=== PATIENT | female | born 1995 | race Caucasian/White ===

== ENCOUNTER 2017-07-02 15:09 | Emergency (ER) | payer SELFPAY ==
--- NOTE | 2017-07-02 16:01 | ER Document Report ---
ED Medical Screen (RME) - General Chief Complaint: Vaginal Bleeding Stated Complaint: VAGINAL BLEEDING Time Seen by Provider: 07/02/17 15:57 Notes: Patient presents with vaginal bleeding and lower abdominal cramping. She states she is 13 weeks . She has not had an ultrasound with this . She states she did have some bleeding at 6 weeks and received RhoGam at that time. TRAVEL OUTSIDE OF THE [place] IN LAST 30 DAYS: No - Related Data Allergies/Adverse Reactions: ofloxacin [From Floxin] Allergy (Verified 09/26/14 18:38) acetaminophen [From Tylenol] Adverse Reaction (Intermediate, Verified 07/02/17 15:11) VOMITING Past Medical History - General Last Menstrual Period: 03/27/17 - Social History Chew tobacco use (# tins/day): No Frequency of alcohol use: None Drug Abuse: None Pulmonary Medical History: Reports: Hx Asthma Renal/ Medical History: Denies: Hx Peritoneal Dialysis Psychiatric Medical History: Reports: Hx Anxiety, Hx Attention Deficit Hyperactivity Disorder, Hx Depression Past Surgical History: Reports: Hx Tonsillectomy - Immunizations Immunizations up to date: Yes Physical Exam - Vital signs Vitals: Temp Pulse Resp BP Pulse Ox 98.9 F 85 20 124/71 97 07/02/17 15:20 07/02/17 15:20 07/02/17 15:20 07/02/17 15:20 07/02/17 15:20 Course - Vital Signs Vital signs: Temp Pulse Resp BP Pulse Ox 98.9 F 85 20 124/71 97 07/02/17 15:20 07/02/17 15:20 07/02/17 15:20 07/02/17 15:20 07/02/17 15:20
[2017-07-02 16:32] LABS: ABSOLUTE BASOPHILS # (AUTO) 0.1 10^3/uL (0.0-0.2); ABSOLUTE EOSINOPHILS # (AUTO) 0.3 10^3/uL (0.0-0.6); ABSOLUTE LYMPHOCYTES (AUTO) 3.4 10^3/uL (0.5-4.7); ABSOLUTE MONOCYTES (AUTO) 0.8 10^3/uL (0.1-1.4); ABSOLUTE NEUT (AUTO) 5.7 10^3/uL (1.7-8.2); BASOPHILS % (AUTO) 0.8 % (0-2); EOSINOPHILS % (AUTO) 2.9 % (0-6); HEMATOCRIT 42.7 % (36.0-47.0); HEMOGLOBIN 14.7 g/dL (12.0-15.5); LYMPHOCYTES % (AUTO) 33.3 % (13-45); MEAN CORPUSCULAR HEMOGLOBIN 31.5 pg (27.0-33.4); MEAN CORPUSCULAR HGB CONC 34.3 g/dL (32.0-36.0); MEAN CORPUSCULAR VOLUME 92 fl (80-97); MONOCYTES % (AUTO) 7.7 % (3-13); PLATELET COUNT 333 10^3/uL (150-450); RED BLOOD COUNT 4.65 10^6/uL (3.72-5.28); RED CELL DISTRIBUTION WIDTH 12.7 % (11.5-14.0); SEGMENTED NEUTROPHILS % (AUTO) 55.3 % (42-78); TOTAL CELLS COUNTED % (AUTO) 100 %; WHITE BLOOD COUNT 10.2 10^3/uL (4.0-10.5)
--- NOTE | 2017-07-02 16:43 | ER Document Report ---
ED General - General Chief Complaint: Vaginal Bleeding Stated Complaint: VAGINAL BLEEDING Time Seen by Provider: 07/02/17 15:57 Mode of Arrival: Ambulatory Information source: Patient Notes: 22 yr old female currently 13 weeks presents with complaints of bright red vag spotting that started today. pt had bleeding at 6 weeks received rho alisha, pt dneies any abd pain, denies any clots this time. TRAVEL OUTSIDE OF THE [place] IN LAST 30 DAYS: No - HPI Onset: Just prior to arrival - Related Data Allergies/Adverse Reactions: ofloxacin [From Floxin] Allergy (Verified 09/26/14 18:38) acetaminophen [From Tylenol] Adverse Reaction (Intermediate, Verified 07/02/17 15:11) VOMITING Past Medical History - General Last Menstrual Period: 03/27/17 - Social History Smoking Status: Current Every Day Smoker Chew tobacco use (# tins/day): No Frequency of alcohol use: None Drug Abuse: None Family History: Reviewed & Not Pertinent Patient has suicidal ideation: No Patient has homicidal ideation: No Pulmonary Medical History: Reports: Hx Asthma Renal/ Medical History: Denies: Hx Peritoneal Dialysis Psychiatric Medical History: Reports: Hx Anxiety, Hx Attention Deficit Hyperactivity Disorder, Hx Depression Past Surgical History: Reports: Hx Tonsillectomy - Immunizations Immunizations up to date: Yes Physical Exam - Vital signs Vitals: Temp Pulse Resp BP Pulse Ox 98.9 F 85 20 124/71 97 07/02/17 15:20 07/02/17 15:20 07/02/17 15:20 07/02/17 15:20 07/02/17 15:20 Course - Re-evaluation Re-evalutation: 07/02/17 18:40 Ultrasound is concerning for threatened miscarriage report was provided to the patient and mother, we had a long discussion about the miscarriage they will follow-up in 48 hours for repeat hCG After performing a Medical Screening Examination, I estimate there is LOW risk for ACUTE APPENDICITIS, BOWEL OBSTRUCTION, ACUTE CHOLECYSTITIS, PERFORATED DIVERTICULITIS, INCARCERATED HERNIA, PANCREATITIS, PELVIC INFLAMMATORY DISEASE, PERFORATED ULCER, ECTOPIC , or TUBO-OVARIAN ABSCESS, thus I consider the discharge disposition reasonable. Also, there is no evidence or peritonitis , sepsis, or toxicity. I have reevaluated this patient multiple times and no significant life threatening changes are noted. The patient and I have discussed the diagnosis and risks, and we agree with discharging home with close follow-up with the understanding that symptoms and presentations can change. We also discussed returning to the Emergency Department immediately if new or worsening symptoms occur. We have discussed the symptoms which are most concerning (e.g., bloody stool, fever, changing or worsening pain, vomiting) that necessitate immediate return. - Vital Signs Vital signs: Temp Pulse Resp BP Pulse Ox 98.9 F 85 20 124/71 97 07/02/17 15:20 07/02/17 15:20 07/02/17 15:20 07/02/17 15:20 07/02/17 15:20 - Laboratory Result Diagrams: 07/02/17 16:05 07/02/17 15:06 Laboratory results interpreted by me: 07/02/17 07/02/17 15:06 16:00 BUN 5 L Creatinine 0.50 L Calcium 10.4 H Beta HCG, Quant 1489.60 H Urine Blood LARGE H - Diagnostic Test Radiology reviewed: Image reviewed - Threatened miscarriage, Reports reviewed Discharge - Discharge Clinical Impression: Threatened miscarriage in early Condition: Stable Disposition: HOME, SELF-CARE Instructions: Repeat Blood Test ([facility]), Threatened Miscarriage ([facility]) Forms: Follow-Up Laboratory Testing
[2017-07-02 16:44] LABS: AMORPHOUS SEDIMENT,URINE 2+ /HPF; APPEARANCE,URINE TURBID; BILIRUBIN,URINE NEGATIVE (NEGATIVE); COLOR,URINE YELLOW; GLUCOSE, URINE NEGATIVE (NEGATIVE); KETONES,URINE NEGATIVE (NEGATIVE); LEUKOCYTE ESTERASE,URINE NEGATIVE (NEGATIVE); NITRITE,URINE NEGATIVE (NEGATIVE); PROTEIN,URINE NEGATIVE (NEGATIVE); URINE SPECIFIC GRAVITY 1.011; UROBILINOGEN,URINE NEGATIVE mg/dL (<2.0)
[2017-07-02 16:49] LABS: ALANINE AMINOTRANSFERASE 33 U/L (9-52); ALBUMIN 4.7 g/dL (3.5-5.0); ALKALINE PHOSPHATASE 65 U/L (38-126); ANION GAP 12 (5-19); ASPARTATE AMINO TRANSFERASE 22 U/L (14-36); BILIRUBIN,DIRECT 0.1 mg/dL (0.0-0.4); BILIRUBIN,TOTAL 0.5 mg/dL (0.2-1.3); BLOOD UREA NITROGEN 5 mg/dL (7-20); CALCIUM 10.4 mg/dL (8.4-10.2); CARBON DIOXIDE 26 mmol/L (22-30); CHLORIDE 104 mmol/L (98-107); GLUCOSE 77 mg/dL (75-110); POTASSIUM 4.1 mmol/L (3.6-5.0); SODIUM 141.9 mmol/L (137-145)
--- NOTE | 2017-07-02 18:19 | RADIOLOGY REPORT (SQ) ---
EXAM DESCRIPTION: U/S [id number] TRNABD 1GES W/ODOP COMPLETED DATE/TIME: 07/02/2017 6:07 pm REASON FOR STUDY: pain/preg/bleeding COMPARISON: None. TECHNIQUE: Transabdominal static and realtime grayscale images acquired of the pelvis. Additional se lected spectral and color Doppler images recorded. All images stored on PACs. bHC,489. LIMITATIONS: None. FINDINGS: UTERUS: No masses. No anomalies. GESTATIONAL SAC: Fairly large and slightly irregular gestational sac. Measurements correspond to a 9 week gestation. YOLK SAC: No. POLE: No. RIGHT ADNEXA: Normal ovary with normal vascular flow. No adnexal free fluid. No adnexal masses. LEFT ADNEXA: Normal ovary with normal vascular flow. No adnexal free fluid. No adnexal masses. FREE FLUID: None. OTHER: No other significant finding. IMPRESSION: GESTATIONAL SAC WITH MEASUREMENTS CORRESPONDING TO A 9 WEEK GESTATION. NO POLE AN D NO CLEAR-CUT YOLK SAC VISUALIZED. BHCG LEVEL APPROPRIATE FOR ENDOMETRIAL FINDINGS. FINDINGS SOMEWHAT CONCERNING FOR FAILED . RECOMMEND FOLLOW-UP ULTRASOUND AND BETA HCG LEVEL IN A FEW DAYS TO DETERMINE IF THERE IS ANY NORMAL DEVELOPMENT. Trimester of : First - 0 to 13 weeks. TECHNICAL DOCUMENTATION: JOB ID: [id number] [employer]- All Rights Reserved Reading location - IP/workstation name: [email or web address]
[2017-07-02 18:49] VITALS: BP 114/73
== END 2017-07-02 18:49 | disposition home or self-care (01) ==
LOC: ER 15:09
DX: O20.0 Threatened abortion (principal); O99.331 Smoking (tobacco) complicating pregnancy, first trimester; Z3A.13 13 weeks gestation of pregnancy; Z88.6 Allergy status to analgesic agent
CPT/HCPCS: 36415; 76801; 80053; 81001; 84702; 85025; 99284

== ENCOUNTER 2017-07-06 07:05 | Emergency (ER) | payer SELFPAY ==
--- NOTE | 2017-07-06 07:57 | ER Document Report ---
ED GI/ - General Chief Complaint: Vag Bleeding, +preg <12wks Stated Complaint: PELVIC PAIN Time Seen by Provider: 07/06/17 07:47 Mode of Arrival: Ambulatory Information source: Patient Notes: Seen in emergency room last Friday, ultrasound showed a threatened miscarriage. Patient received RhoGam at 6 weeks due to bleeding at that time. Patient passed white appearing sac in toilet in the emergency room today. TRAVEL OUTSIDE OF THE [place] IN LAST 30 DAYS: No - HPI Patient complains to provider of: Abdominal pain, Pelvic pain, Vaginal bleeding Onset: Other - Symptoms started Friday Timing/Duration: Persistent Quality of pain: Pressure, Sharp Severity at maximum: Severe Severity in ED: Severe Pain Level: 5 Context: Vaginal bleeding (Compared to normal period): Heavier OB ultrasound done: Yes Sexual history: Active Exacerbated by: Denies Relieved by: Denies Similar symptoms previously: Yes - Seen in ER Friday, states she was told she was about 9 weeks Recently seen / treated by doctor: Yes - Related Data Allergies/Adverse Reactions: ofloxacin [From Floxin] Allergy (Verified 09/26/14 18:38) acetaminophen [From Tylenol] Adverse Reaction (Intermediate, Verified 07/02/17 15:11) VOMITING Past Medical History - General Information source: Patient - Social History Smoking Status: Current Every Day Smoker Cigarette use (# per day): Yes Frequency of alcohol use: Occasional Drug Abuse: None Lives with: Family Family History: Reviewed & Not Pertinent Pulmonary Medical History: Reports: Hx Asthma Psychiatric Medical History: Reports: Hx Anxiety, Hx Attention Deficit Hyperactivity Disorder, Hx Depression Past Surgical History: Reports: Hx Adenoidectomy, Hx Herniorrhaphy, Hx Myringotomy, Hx Tonsillectomy - Immunizations Immunizations up to date: Yes Review of Systems - Review of Systems Constitutional: No symptoms reported EENT: No symptoms reported Cardiovascular: No symptoms reported Respiratory: No symptoms reported Gastrointestinal: No symptoms reported Genitourinary: No symptoms reported Female Genitourinary: , Vaginal bleeding Musculoskeletal: No symptoms reported, Joint pain Hematologic/Lymphatic: No symptoms reported Neurological/Psychological: No symptoms reported -: Yes All other systems reviewed and negative Physical Exam - Vital signs Vitals: Temp Pulse Resp BP Pulse Ox 98.6 F 95 18 118/70 98 07/06/17 07:08 07/06/17 07:08 07/06/17 07:08 07/06/17 07:08 07/06/17 07:08 - General General appearance: Alert, Anxious In distress: Mild - Respiratory Respiratory status: No respiratory distress Breath sounds: Normal - Cardiovascular Rhythm: Regular Heart sounds: Normal auscultation - Abdominal Inspection: Normal Bowel sounds: Normal Notes: Patient reassessed after morphine given and denies abdominal pain with palpation. Spoke with Dr. Moore about transvaginal ultrasound after the patient had been medicated. States that no was seen on abdominal ultrasound, and sac appeared to be partially hanging out of the cervix. Told her that patient had passed the sac, so no repeat transvaginal ultrasound at this time. Patient is to return for quant levels in 2 days. - Back Back: Normal - Extremities General upper extremity: Normal inspection General lower extremity: Normal inspection - Neurological Neuro grossly intact: Yes Cognition: Normal Orientation: AAOx4 - Psychological Associated symptoms: Anxious - Skin Skin Temperature: Warm Skin Moisture: Dry Skin Color: Normal Course - Re-evaluation Re-evalutation: 07/06/17 10:44 Patient denies pain after morphine was given. Abdomen nontender to palpation. Reports of abdominal ultrasound given to patient. She is to return in 2 days for repeat quant levels, earlier if vaginal bleeding or pain worsens - Vital Signs Vital signs: Temp Pulse Resp BP Pulse Ox 98.6 F 95 18 118/70 98 07/06/17 07:08 07/06/17 07:08 07/06/17 07:08 07/06/17 07:08 07/06/17 07:08 - Laboratory Result Diagrams: 07/06/17 08:00 07/06/17 08:00 Laboratory results interpreted by me: 07/06/17 07/06/17 08:00 08:00 WBC 15.2 H Absolute Neutrophils 11.7 H Beta HCG, Quant 596.42 H Discharge - Discharge Clinical Impression: Miscarriage Condition: Good Disposition: HOME, SELF-CARE Additional Instructions: Stay off feet for several days Motrin as needed for pain, Percocet if pain unrelieved by Motrin Return in 2 days for repeat quant level, earlier if any problems. You will go to the main lab to have repeat bloodwork done, and you will be notified of the results. Follow-up with your doctor for recheck. Prescriptions: Oxycodone HCl 5 mg PO QID #15 tablet Forms: Follow-Up Laboratory Testing, Parent Work Note
[2017-07-06 08:23] LABS: ABSOLUTE BASOPHILS # (AUTO) 0.1 10^3/uL (0.0-0.2); ABSOLUTE EOSINOPHILS # (AUTO) 0.1 10^3/uL (0.0-0.6); ABSOLUTE LYMPHOCYTES (AUTO) 2.1 10^3/uL (0.5-4.7); ABSOLUTE MONOCYTES (AUTO) 1.1 10^3/uL (0.1-1.4); ABSOLUTE NEUT (AUTO) 11.7 10^3/uL (1.7-8.2); BASOPHILS % (AUTO) 0.6 % (0-2); HEMATOCRIT 41.4 % (36.0-47.0); HEMOGLOBIN 14.2 g/dL (12.0-15.5); LYMPHOCYTES % (AUTO) 13.7 % (13-45); MEAN CORPUSCULAR HEMOGLOBIN 31.2 pg (27.0-33.4); MEAN CORPUSCULAR HGB CONC 34.2 g/dL (32.0-36.0); MEAN CORPUSCULAR VOLUME 91 fl (80-97); MONOCYTES % (AUTO) 7.5 % (3-13); PLATELET COUNT 318 10^3/uL (150-450); RED BLOOD COUNT 4.54 10^6/uL (3.72-5.28); RED CELL DISTRIBUTION WIDTH 12.8 % (11.5-14.0); SEGMENTED NEUTROPHILS % (AUTO) 77.2 % (42-78); TOTAL CELLS COUNTED % (AUTO) 100 %; WHITE BLOOD COUNT 15.2 10^3/uL (4.0-10.5)
[2017-07-06 08:45] LABS: ALANINE AMINOTRANSFERASE 45 U/L (9-52); ALBUMIN 4.4 g/dL (3.5-5.0); ALKALINE PHOSPHATASE 76 U/L (38-126); ANION GAP 13 (5-19); ASPARTATE AMINO TRANSFERASE 32 U/L (14-36); BILIRUBIN,DIRECT 0.3 mg/dL (0.0-0.4); BLOOD UREA NITROGEN 9 mg/dL (7-20); CALCIUM 10.1 mg/dL (8.4-10.2); CARBON DIOXIDE 22 mmol/L (22-30); CHLORIDE 106 mmol/L (98-107); GLUCOSE 90 mg/dL (75-110); POTASSIUM 4.3 mmol/L (3.6-5.0); TOTAL PROTEIN 7.1 g/dL (6.3-8.2)
[2017-07-06] MEDS ORDERED: ONDANSETRON 4 MG TAB.RAPDIS PO ONE (08:56)
[2017-07-06] MEDS ORDERED: HYDROMORPHONE HCL INJ/PF 2 MG/ML AMPULE IM ONE (08:56)
--- NOTE | 2017-07-06 09:14 | RADIOLOGY REPORT (SQ) ---
EXAM DESCRIPTION: U/S [id number] TRNABD 1GES W/ODOP COMPLETED DATE/TIME: 07/06/2017 8:42 am REASON FOR STUDY: preg vag bleeding, thinks she miscarried COMPARISON: 07/02/2017 TECHNIQUE: Transabdominal static and realtime grayscale images acquired of the pelvis. Additional se lected spectral and color Doppler images recorded. All images stored on PACs. BHCG: None available LIMITATIONS: Limited transabdominal scanning was performed. Patient refused to complete the exam. FINDINGS: Uterus measures 11 x 6 x 6 cm in size. There is fluid filling the endometrial canal, with fluid extending into the cervix and lower uterine segment. No embryo is identified on these limited images. Findings most likely represent a spontaneous . No pelvic cul-de-sac fluid. Ovaries not evaluated. IMPRESSION: Intrauterine gestational sac is now low lying, along the lower uterine segment and cervi x. Embryo not identified. This most likely represents a spontaneous TECHNICAL DOCUMENTATION: JOB ID: [id number] [employer]- All Rights Reserved Reading location - IP/workstation name: [email or web address]
[2017-07-06] MEDS ORDERED: MORPHINE SULFATE 10 MG/ML INJ IM ONE (09:28)
[2017-07-06 10:52] VITALS: BP 120/74
== END 2017-07-06 10:56 | disposition home or self-care (01) ==
LOC: ER 07:05
DX: O03.9 Complete or unspecified spontaneous abortion without complication (principal); J45.909 Unspecified asthma, uncomplicated; F17.210 Nicotine dependence, cigarettes, uncomplicated; Z88.1 Allergy status to other antibiotic agents
CPT/HCPCS: 99284; 96372; 36415; 84702; 85025; 80053; 88305 ×2; 76801; S0119; J2270

== ENCOUNTER → 2017-07-08 | Outpatient (CLI) | payer SELFPAY | LOC: LAB 18:03 | PROVIDERS: ATTEND Nurse Practitioner Acute Care | DX: O03.9 Complete or unspecified spontaneous abortion without complication (principal); Z3A.00 Weeks of gestation of pregnancy not specified | CPT/HCPCS: 36415; 84702 ==